=== PATIENT | female | born 1980 | race Two or more races ===

== ENCOUNTER 2018-03-19 03:30 | Emergency (ER) | payer MEDICAID ==
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
[2018-03-19 09:19] VITALS: BP 105/73
== END 2018-03-19 09:18 | disposition home or self-care (01) ==
DX: F10.921 Alcohol use, unspecified with intoxication delirium (principal); F17.200 Nicotine dependence, unspecified, uncomplicated

== ENCOUNTER 2018-03-19 18:08 | Emergency (ER) | payer MEDICAID ==
[2018-03-19] MEDS ORDERED: CHLORDIAZEPOXIDE 25MG PREPK#6 BTL TAKEHOME ONE ×2 (18:20→18:21)
[2018-03-19] MEDS ORDERED: chlordiazePOXIDE 25 MG CAP ONE (18:20)
[2018-03-19] MEDS ORDERED: ONDANSETRON DISINTEGRATING 4 MG TAB ONE (18:20)
[2018-03-19] MEDS ORDERED: chlordiazePOXIDE 25 MG CAP PO ONE (18:21)
[2018-03-19] MEDS ORDERED: ONDANSETRON DISINTEGRATING 4 MG TAB PO ONE (18:21)
--- NOTE | 2018-03-19 18:23 | EDPHY ---
H & P Time Seen by Provider: 03/19/18 18:17 HPI/ROS: CHIEF COMPLAINT: I am detoxing HISTORY OF PRESENT ILLNESS: 37-year-old woman last alcohol with this morning. Was sent from detox to me for tremor and shaky and nausea. Patient has tremors, feels shaky, nausea with some vomiting. No hematemesis or coffee-ground emesis and no abdominal pain. Symptoms moderate. Not better or worse with anything. REVIEW OF SYSTEMS: Eye: no change in vision ENT: no sore throat Cardiac: no chest pain or syncope Pulmonary: no cough or SOB Abdomen: HPI Musculoskeletal: no back pain Skin: no rash Neuro: no headache or confusion or ataxia Constitutional: no fever : no urinary symptoms A comprehensive 10 point review of systems is otherwise negative aside from elements mentioned in the history of present illness. PAST MEDICAL HISTORY: Bipolar, alcoholism, depression and anxiety Social history: Last alcohol this morning General Appearance: Alert and conversant, cooperative. Eyes: No scleral icterus. Pupils reactive and extraocular motion intact. ENT, Mouth: Normal mucous membranes. Respiratory: Normal respiratory effort, breath sounds equal, lungs are clear to auscultation. Cardiovascular: Regular rate and rhythm. Gastrointestinal: Abdomen is soft and non tender. Neurological: Alert, face symmetric, normal motor and sensory in extremities. Ambulatory, not ataxic, very tremulous. Skin: Warm and dry, no rashes. Musculoskeletal: No peripheral edema. Psychiatric: Not agitated. Not hallucinating or confused. Emergency Department course/MDM: Zofran ODT and Librium 50 mg orally. Plan to serially observed and then back to detox with Librium. 1853: Minimal tremor, feels better, wants to go to detox which I think is reasonable. Stable for discharge. Smoking Status: Light smoker Constitutional: Initial Vital Signs Temperature (C) 36.7 C 03/19/18 18:10 Heart Rate 86 03/19/18 18:10 Respiratory Rate 20 03/19/18 18:10 Blood Pressure 145/78 H 03/19/18 18:10 O2 Sat (%) 99 03/19/18 18:10 O2 Delivery Mode Room Air Allergies/Adverse Reactions: acetaminophen [From Tylenol] Allergy (Verified 03/19/18 18:10) ibuprofen Allergy (Verified 03/19/18 18:10) Home Medications: Medication Instructions Recorded NK [No Known Home Meds] 03/19/18 Medical Decision Making - Data Points Medications Given: Discontinued Medications Chlordiazepoxide (Librium 25 Mg Prepack#6) 1 btl TAKEHOME EDNOW ONE Stop: 03/19/18 18:22 Last Admin: 03/19/18 18:25 Dose: 1 btl Chlordiazepoxide HCl (Librium) 50 mg PO EDNOW ONE Stop: 03/19/18 18:22 Last Admin: 03/19/18 18:25 Dose: 50 mg Ondansetron HCl (Zofran Odt) 4 mg PO EDNOW ONE Stop: 03/19/18 18:22 Last Admin: 03/19/18 18:25 Dose: 4 mg Departure - Departure Disposition: Home, Routine, Self-Care Clinical Impression: Alcohol withdrawal Qualifiers: Complication of substance-induced condition: uncomplicated Qualified Code(s): F10.230 - Alcohol dependence with withdrawal, uncomplicated Condition: Good Instructions: Chlordiazepoxide (By mouth), Alcohol Withdrawal (ED) Referrals: [facility] 24 Hours [Outside] - As per Instructions [facility],. [Clinic] - As per Instructions
[2018-03-19 19:03] VITALS: BP 135/89
== END 2018-03-19 19:35 | disposition home or self-care (01) ==
DX: F10.230 Alcohol dependence with withdrawal, uncomplicated (principal); F17.200 Nicotine dependence, unspecified, uncomplicated

== ENCOUNTER 2018-06-23 21:07 | Emergency (ER) | payer MEDICAID ==
[2018-06-23 21:18] VITALS: BP 144/82
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
== END 2018-06-23 22:02 ==
DX: S40.011A Contusion of right shoulder, initial encounter (principal); Y04.8XXA Assault by other bodily force, initial encounter; Y99.8 Other external cause status

== ENCOUNTER 2018-07-16 00:14 | Emergency (ER) | payer MEDICAID ==
[~2018-07-16 00:14] MED LIST: AMOXICILLIN/CLAVULANATE POT 875/125 MG TAB PO SCH
[2018-07-16] MEDS ORDERED: HYDROCODONE/APAP 5/325 TAB PO ONE (00:39)
[2018-07-16] MEDS ORDERED: AMOXICILLIN/CLAVULANATE POT 875/125 MG TAB PO ONE (00:39)
[2018-07-16] MEDS ORDERED: DEXAMETHASONE 4 MG TAB PO ONE (00:39)
--- NOTE | 2018-07-16 00:45 | EDPHY ---
H & P Stated Complaint: Swollen Tonsils- 3 days, has been drinking. Time Seen by Provider: 07/16/18 00:25 HPI/ROS: HPI The patient presents with 4 days of sore throat worse on the right side which has been getting progressively worse associated with hoarseness of her voice and subjective fevers at home. She has right-sided neck pain. She has a mild cough. She was unable to sleep tonight because the pain was so severe. She has difficulty taking fluids by mouth though is able to tolerate saliva. She thinks her voice sounds hoarse. REVIEW OF SYSTEMS 10 systems were reviewed and negative with the exception of the elements mentioned in the history of present illness. 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, history of alcohol abuse, daily drinker with history of withdrawal PHYSICAL General Appearance: Alert, no distress Eyes: Pupils equal and round no pallor or injection ENT, Mouth: Right peritonsillar area is erythematous and edematous, uvula is midline, tonsils are enlarged, there is no exudate, there is no trismus, there is right-sided anterior cervical lymphadenopathy, Mucous membranes moist Respiratory: There are no retractions, lungs are clear to auscultation Cardiovascular: Regular rate and rhythm Gastrointestinal: Abdomen is soft and non-tender, no masses, bowel sounds normal Neurological: A&O, moves all extremities Skin: Warm and dry, no rashes Musculoskeletal: Neck is supple non tender Extremities: symmetrical, full range of motion Psychiatric: Patient is oriented X 3, there is no agitation Source: Patient Exam Limitations: No limitations - Personal History LMP (Females 10-55): Now Current Tetanus/Diphtheria Vaccine: Yes Current Tetanus Diphtheria and Acellular Pertussis (TDAP): Yes Tetanus Vaccine Date: 2017 - Medical/Surgical History Hx Asthma: No Hx Chronic Respiratory Disease: No Hx Diabetes: No Hx Cardiac Disease: No Hx Renal Disease: No Hx Cirrhosis: No Hx Alcoholism: Yes Hx HIV/AIDS: No Hx Splenectomy or Spleen Trauma: No Other PMH: Bipolar, ETOH abuse, depression, anxiety, marijuana user - Social History Smoking Status: Current some day smoker Constitutional: Initial Vital Signs Temperature (C) 36.7 C 07/16/18 00:16 Heart Rate 110 H 07/16/18 00:16 Blood Pressure 111/79 07/16/18 00:16 O2 Sat (%) 93 07/16/18 00:16 Allergies/Adverse Reactions: acetaminophen [From Tylenol] Allergy (Mild, Verified 07/16/18 00:15) ibuprofen Allergy (Mild, Verified 07/16/18 00:15) Home Medications: Medication Instructions Recorded Amoxicillin/Clavulanate Pot 875 mg PO BID #14 tab 07/16/18 [Augmentin 875 MG TAB (*)] Medical Decision Making Procedures: Peritonsillar abscess drainage: Using an atomizer, approximately 1 mL of lidocaine 1% with epinephrine was distributed throughout the right tonsillar region. Then using a 27 gauge syringe approximately 0.5 mL of lidocaine with epinephrine were injected superficially in the peritonsillar region. Using a 20 gauge control syringe I was able to remove total of 0.5 mL of greenish-yellow pus. Patient tolerated the procedure well with no immediate complication. Differential Diagnosis: 38-year-old female who is homeless with history of alcohol abuse presents with right-sided sore throat for 4 days. On exam, she appears to have a right-sided peritonsillar abscess without any trismus or uvular deviation. The patient was given Augmentin, Decadron, [place] here with improvement in her symptoms. I was able to drain her peritonsillar abscess without difficulty here. I will refer her to ENT for follow-up. I will prescribe her antibiotics for discharge. She is able to follow up with this plan. - Data Points Medications Given: Discontinued Medications Hydrocodone Bitart/Acetaminophen ([place] 5/325) 2 tab PO EDNOW ONE Stop: 07/16/18 00:40 Last Admin: 07/16/18 00:46 Dose: 2 tab Amoxicillin/Clavulanate Potassium (Augmentin 875mg) 875 mg PO EDNOW ONE PRN Reason: Protocol Stop: 07/16/18 00:40 Last Admin: 07/16/18 00:46 Dose: 875 mg Dexamethasone (Decadron) 8 mg PO EDNOW ONE Stop: 07/16/18 00:40 Last Admin: 07/16/18 00:46 Dose: 8 mg Departure - Departure Disposition: Home, Routine, Self-Care Clinical Impression: Peritonsillar abscess Condition: Good Instructions: Peritonsillar Abscess (ED) Additional Instructions: Please follow-up with the [facility] N[facility] doctor on [address]. Please call to make an appointment and say that your seen in the emergency department. You should return to the emergency department if your worse in any way. Referrals: Laura Sam MD [Medical Doctor] - As per Instructions Prescriptions: Amoxicillin/Clavulanate Pot [Augmentin 875 MG TAB (*)] 875 mg PO BID #14 tab
[2018-07-16 02:49] VITALS: BP 138/78
== END 2018-07-16 02:49 | disposition home or self-care (01) ==
PROC: 0C9P3ZZ Drainage of Tonsils, Percutaneous Approach (ICD-10-PCS; principal; 2018-07-16)
DX: J36 Peritonsillar abscess (principal); F17.200 Nicotine dependence, unspecified, uncomplicated; Z59.0 Homelessness

== ENCOUNTER 2018-09-24 10:34 | Emergency (ER) | payer MEDICAID ==
[2018-09-24] MEDS ORDERED: NS 1,000 ML IV ONE (10:52)
[2018-09-24] MEDS ORDERED: LORazepam 2 MG/ML INJ IVP ONE (10:57)
--- NOTE | 2018-09-24 10:57 | EDPHY ---
H & P Stated Complaint: N/V since 0400 Time Seen by Provider: 09/24/18 10:52 HPI/ROS: CHIEF COMPLAINT: Intractable vomiting HISTORY OF PRESENT ILLNESS: 38-year-old female history of alcoholism, last drink of alcohol approximately midnight, arrives via ambulance complaining of intractable vomiting without hematemesis since this morning. No abdominal pain. No back pain. No chills.. No suicidal homicidal ideation. No seizure. No hallucination. REVIEW OF SYSTEMS: 10 systems reviewed and negative with the exception of the elements mentioned in the history of present illness PAST MEDICAL & SURGICAL HISTORY: Alcoholism. SOCIAL HISTORY:Last drink of alcohol approximately midnight PHYSICAL EXAM (Prior to examination, patient consented to physical exam, hands were washed and my usual and customary physical exam procedures followed) 1) GENERAL: Well-developed, well-nourished, alert and oriented. Appears uncomfortable, retching loudly. 2) HEAD: Normocephalic, atraumatic 3) HEENT: Pupils equal, round, reactive to light bilaterally. Sclera anicteric. Nasopharynx, oropharynx, clear, no lesions. Dry Mucous membranes. Emesis has no a bloody appearance. 4) NECK: Full range of motion, no meningeal signs. 5) LUNGS: Clear auscultation bilaterally, no wheezes, no rhonchi, no retractions. 6) HEART: Regular rate and rhythm, no murmur, no heave, no gallop. 7) ABDOMEN: No guarding, no rebound, no focal tenderness, negative McBurney's, negative Mata's, negative Rovsing's, negative peritoneal sign, 8) MUSCULOSKELETAL: Right lateral pretibial region erythema with central fluctuant lesion. No lymphangitic streaking. No crepitus. Distal DP PT pulses present and brisk. Moving all extremities, no focal areas of tenderness , no obvious trauma. No peripheral edema or discoloration. 9) BACK: No CVA tenderness, no midline vertebral tenderness, no fluctuance, no step-off, no obvious trauma, no visual or palpable abnormality. 10) SKIN: No rash, no petechiae. 11) Psychiatric: Patient is oriented X 3, there is no agitation. DIFFERENTIAL DIAGNOSIS: In no particular order including but not limited to acute pancreatitis, Deepali-Chase tear, esophageal varices a, Boerhaave syndrome , - Personal History LMP (Females 10-55): 8-14 Days Ago Current Tetanus Diphtheria and Acellular Pertussis (TDAP): Yes Tetanus Vaccine Date: 2017 - Medical/Surgical History Hx Asthma: No Hx Chronic Respiratory Disease: No Hx Diabetes: No Hx Cardiac Disease: No Hx Renal Disease: No Hx Cirrhosis: No Hx Alcoholism: Yes Hx HIV/AIDS: No Hx Splenectomy or Spleen Trauma: No Other PMH: Bipolar, ETOH abuse, depression, anxiety, marijuana user - Social History Smoking Status: Current some day smoker Constitutional: Initial Vital Signs Temperature (C) 36.5 C 09/24/18 10:43 Heart Rate 113 H 09/24/18 10:43 Respiratory Rate 20 09/24/18 10:43 Blood Pressure 149/100 H 09/24/18 10:43 O2 Sat (%) 98 09/24/18 10:43 O2 Delivery Mode Room Air Allergies/Adverse Reactions: acetaminophen [From Tylenol] Allergy (Mild, Verified 09/24/18 10:42) ibuprofen Allergy (Mild, Verified 09/24/18 10:42) Home Medications: Medication Instructions Recorded Cephalexin [Keflex] 500 mg PO TID 7 Days cap 09/24/18 Ondansetron Odt [Zofran Odt] 4 mg PO Q4PRN PRN #10 tab 09/24/18 Pantoprazole Sodium [Protonix 40mg 40 mg PO DAILY #30 tab 09/24/18 (RX)] Medical Decision Making ED Course/Re-evaluation: 11:35 a.m.: Re-evaluation. Sleeping, easily woken, asymptomatic. She would like to attempt oral fluid challenge. Will administer oral Zantac and PPI. 12:10 p.m.: Re-evaluation. Patient wants to leave the ER. She remains tachycardic in the 110 beats per minute range.. States that she is asymptomatic. She does have an area of erythema to her right lateral pretibial region which I recommend incision and drainage. She declines this. She does agree to oral antibiotics. She is here with her who would like to take her home. I have recommended staying in the ER for period longer to address her continued tachycardia. She declines this. She is discharged appearing improved. Care of patient under supervision of secondary supervising physician Dr Rodriguez with whom I discussed case. - Data Points Laboratory Results: Laboratory Results 09/24/18 10:35 09/24/18 10:53 09/24/18 09/24/18 09/24/18 10:53 10:35 10:35 WBC RBC Hgb Hct MCV MCH MCHC RDW Plt Count MPV Neut % (Auto) Lymph % (Auto) [place] % (Auto) Eos % (Auto) Baso % (Auto) Nucleat RBC Rel Count Absolute Neuts (auto) Absolute Lymphs (auto) Absolute Monos (auto) Absolute Eos (auto) Absolute Basos (auto) Absolute Nucleated RBC Immature Gran % Immature Gran # Turbidity Cancelled Sodium 140 mEq/L mEq/L Cancelled (135-145) Potassium 4.3 mEq/L mEq/L Cancelled (3.5-5.2) Chloride 107 mEq/L mEq/L Cancelled (97-110) Carbon Dioxide 11 mEq/l L mEq/l Cancelled (22-31) Anion Gap 22 mEq/L H mEq/L Cancelled (6-14) BUN 8 mg/dL mg/dL Cancelled (7-23) Creatinine 0.6 mg/dL mg/dL Cancelled (0.6-1.0) Estimated GFR > 60 Cancelled Glucose 122 mg/dL H mg/dL Cancelled (70-100) Calcium 9.7 mg/dL mg/dL Cancelled (8.5-10.4) Total Bilirubin 0.8 mg/dL mg/dL (0.1-1.4) Conjugated Bilirubin 0.5 mg/dL mg/dL (0.0-0.5) Unconjugated Bilirubin 0.3 mg/dL mg/dL (0.0-1.1) AST 53 IU/L H IU/L (14-46) ALT 44 IU/L IU/L (9-52) Alkaline Phosphatase 138 IU/L H IU/L (38-126) Total Protein 8.6 g/dL H g/dL (6.3-8.2) Albumin 4.7 g/dL g/dL (3.5-5.0) Lipase 67 IU/L IU/L (23-300) Beta HCG, Qual NEGATIVE Specimen Hemolysis Cancelled 09/24/18 10:35 WBC 14.31 10^3/uL H 10^3/uL (3.80-9.50) RBC 4.71 10^6/uL 10^6/uL (4.18-5.33) Hgb 14.7 g/dL g/dL (12.6-16.3) Hct 43.1 % % (38.0-47.0) MCV 91.5 fL fL (81.5-99.8) MCH 31.2 pg pg (27.9-34.1) MCHC 34.1 g/dL g/dL (32.4-36.7) RDW 14.9 % % (11.5-15.2) Plt Count 376 10^3/uL 10^3/uL (150-400) MPV 10.7 fL fL (8.7-11.7) Neut % (Auto) 86.7 % H % (39.3-74.2) Lymph % (Auto) 10.1 % L % (15.0-45.0) [place] % (Auto) 2.4 % L % (4.5-13.0) Eos % (Auto) 0.0 % L % (0.6-7.6) Baso % (Auto) 0.5 % % (0.3-1.7) Nucleat RBC Rel Count 0.0 % % (0.0-0.2) Absolute Neuts (auto) 12.41 10^3/uL H 10^3/uL (1.70-6.50) Absolute Lymphs (auto) 1.44 10^3/uL 10^3/uL (1.00-3.00) Absolute Monos (auto) 0.34 10^3/uL 10^3/uL (0.30-0.80) Absolute Eos (auto) 0.00 10^3/uL L 10^3/uL (0.03-0.40) Absolute Basos (auto) 0.07 10^3/uL 10^3/uL (0.02-0.10) Absolute Nucleated RBC 0.00 10^3/uL 10^3/uL (0-0.01) Immature Gran % 0.3 % % (0.0-1.1) Immature Gran # 0.05 10^3/uL 10^3/uL (0.00-0.10) Turbidity Sodium Potassium Chloride Carbon Dioxide Anion Gap BUN Creatinine Estimated GFR Glucose Calcium Total Bilirubin Conjugated Bilirubin Unconjugated Bilirubin AST ALT Alkaline Phosphatase Total Protein Albumin Lipase Beta HCG, Qual Specimen Hemolysis Medications Given: Discontinued Medications Famotidine (Pepcid) 40 mg PO EDNOW ONE Stop: 09/24/18 11:41 Last Admin: 09/24/18 11:47 Dose: 40 mg Haloperidol Lactate (Haldol Injection) 2.5 mg IVP EDNOW ONE Stop: 09/24/18 10:59 Last Admin: 09/24/18 11:03 Dose: 2.5 mg Sodium Chloride (Ns) 1,000 mls @ 0 mls/hr IV EDNOW ONE; Wide Open PRN Reason: Protocol Stop: 09/24/18 10:53 Last Admin: 09/24/18 11:03 Dose: 1,000 mls Lorazepam (Ativan Injection) 1 mg IVP EDNOW ONE Stop: 09/24/18 10:58 Last Admin: 09/24/18 11:03 Dose: 1 mg Pantoprazole Sodium (Protonix) 40 mg PO EDNOW ONE Stop: 09/24/18 11:41 Last Admin: 09/24/18 11:47 Dose: 40 mg Departure - Departure Disposition: Home, Routine, Self-Care Clinical Impression: Volume depletion Nausea & vomiting Qualifiers: Vomiting type: unspecified Vomiting Intractability: non-intractable Qualified Code(s): R11.2 - Nausea with vomiting, unspecified Alcohol withdrawal Qualifiers: Complication of substance-induced condition: with unspecified complication Qualified Code(s): F10.239 - Alcohol dependence with withdrawal, unspecified Condition: Good Instructions: Furunculosis and Carbunculosis (ED), Alcohol Withdrawal (ED) Additional Instructions: You have declined further evaluation in the ER, have declined incision and drainage of a possible abscess. Referrals: [facility],. [Clinic] - 2-3 days, call for appt. Prescriptions: Cephalexin [Keflex] 500 mg PO TID 7 Days cap Ondansetron Odt [Zofran Odt] 4 mg PO Q4PRN PRN #10 tab PRN Reason: Nausea Pantoprazole Sodium [Protonix 40mg (RX)] 40 mg PO DAILY #30 tab
[2018-09-24] MEDS ORDERED: HALOPERIDOL LACT 5 MG/ML INJ IVP ONE (10:58)
[2018-09-24 11:06] LABS: PLATELET COUNT 376 10^3/uL (150-400)
[2018-09-24] MEDS ORDERED: FAMOTIDINE 20 MG TAB PO ONE (11:40)
[2018-09-24] MEDS ORDERED: PANTOPRAZOLE SODIUM 40 MG TAB PO ONE (11:40)
[2018-09-24 12:19] VITALS: BP 135/96
== END 2018-09-24 12:20 | disposition home or self-care (01) ==
LOC: EDUNIT#
DX: R11.2 Nausea with vomiting, unspecified (principal); F10.239 Alcohol dependence with withdrawal, unspecified
CPT/HCPCS: 96374; J1630; J2060